=== PATIENT | male | born 1965 | race Caucasian/White ===

== ENCOUNTER 2018-03-06 16:12 | Emergency (ER) | payer MEDICAID ==
[~2018-03-06] VITALS: Ht 172.7 cm; Wt 113.6 kg
[2018-03-06] MEDS ORDERED: MAGNESIUM SULFATE 2 GM, MVI, ADULT NO.1 WITH VIT K 10 ML, THIAMINE HCL 100 MG, FOLIC AC... IV ONE ×5 (17:15)
[2018-03-06] MEDS ORDERED: SODIUM CHLORIDE 0.9% 1,000 ML IV ONE (17:15)
[2018-03-06 18:47] LABS: BASOPHILS % (AUTO) 1.4 % (0.0-2.0); EOSINOPHILS % (AUTO) 4.5 % (1.0-6.0); HEMATOCRIT 24.1 % (41-53); HEMOGLOBIN 8.5 g/dL (13.5-17.5); LYMPHOCYTES # (AUTO) 1.4 K/uL (1.0-4.8); LYMPHOCYTES % (AUTO) 35.9 % (22.0-44.0); MEAN CORPUSCULAR HGB CONC 35.1 G/dL (31.0-37.0); MEAN CORPUSCULAR VOLUME 97 fL (80-100); MONOCYTES # (AUTO) 0.4 K/uL (0.1-1.0); MONOCYTES % (AUTO) 9.8 % (2.0-9.0); NEUTROPHILS # (AUTO) 1.9 K/uL (1.8-7.7); NEUTROPHILS % (AUTO) 48.4 % (40.0-70.0); PLATELET COUNT (AUTO) 123 K/uL (150-450); RED BLOOD CELL COUNT(AUTO) 2.49 MIL/uL (4.50-5.90); RED CELL DISTRIBUTION WIDTH 17.9 % (11.5-14.5)
[2018-03-06 19:01] LABS: ANION GAP 10 mmol/L (8-16); CALCIUM, TOTAL 7.9 mg/dL (8.8-10.5); CARBON DIOXIDE 27 mmol/L (22-29); CHLORIDE 104 mmol/L (98-107); CREATININE 0.82 mg/dL (0.60-1.30); GLOMERULAR FILTR. RATE CALC > 60 mL/min (>60); GLUCOSE,RANDOM 77 mg/dL (70-110); POTASSIUM 4.3 mmol/L (3.5-5.1); SODIUM SERUM 141 mmol/L (136-145); UREA NITROGEN, BLOOD 23 mg/dL (7-18)
[2018-03-06 19:05] LABS: ALANINE AMINOTRANSFERASE 42 U/L (12-78); ALBUMIN 3.5 g/dL (3.4-5.0); ALKALINE PHOSPHATASE 92 U/L (46-116); ASPARTATE AMINOTRANSFERASE 50 U/L (15-37); BILIRUBIN,TOTAL 0.4 mg/dL (0.1-1.0)
[2018-03-06 19:17] LABS: PLATELET MORPHOLOGY COMMENT LARGE PLTS PRESENT
[2018-03-06 19:52] LABS: LIPASE 292 U/L (73-393)
[2018-03-06] MEDS ORDERED: APIX2.5T PO (19:56)
[2018-03-06] MEDS ORDERED: [UNRECOGNIZED DRUG - REMARK] PO (19:57)
[2018-03-06] MEDS ORDERED: UNK BP MED PO (19:57)
[2018-03-06 20:34] LABS: APPEARANCE,URINE CLEAR (CLEAR); BILIRUBIN,URINE NEGATIVE (NEGATIVE); GLUCOSE, URINE (UA) NEGATIVE (NEGATIVE); KETONES,URINE NEGATIVE (NEGATIVE); LEUKOCYTE ESTERASE ,URINE NEGATIVE (NEGATIVE); NITRATE,URINE NEGATIVE (NEGATIVE); OCCULT BLOOD,URINE NEGATIVE (NEGATIVE); PROTEIN,URINE NEGATIVE (NEGATIVE); UROBILINOGEN,URINE 0.2 mg/dL (<=1.0)
[2018-03-06 20:39] LABS: AMPHET/METH SCREEN,URINE NEGATIVE (NEGATIVE); BARBITURATE SCREEN, URINE NEGATIVE (NEGATIVE); BENZODIAZEPINES SCREEN,URINE POSITIVE (NEGATIVE); CANNABINOID SCREEN,URINE NEGATIVE (NEGATIVE); COCAINE SCREEN,URINE NEGATIVE (NEGATIVE); METHADONE SCREEN, URINE NEGATIVE (NEGATIVE); OPIATE SCREEN,URINE NEGATIVE (NEGATIVE); PHENCYCLIDINE SCREEN,URINE NEGATIVE (NEGATIVE)
[2018-03-06] MEDS ORDERED: DiphenhydrAMINE HCL 50 MG/ML VIAL IVP ONE (21:15)
[2018-03-06] MEDS ORDERED: ChlordiazePOXIDE HCL 25 MG CAPSULE PO ONE (21:15)
[2018-03-07] MEDS ORDERED: PHENobarbital 30 MG TABLET PO ONE ×2 (05:30→05:45)
[2018-03-07] MEDS ORDERED: SPIR25 PO (06:46)
[2018-03-07] MEDS ORDERED: LEVO25TA9 PO (06:46)
[2018-03-07] MEDS ORDERED: APIX2.5T PO (06:46)
[2018-03-07] MEDS ORDERED: IRON18TA PO (06:46)
[2018-03-07] MEDS ORDERED: BUME1TAB17 PO (06:46)
[2018-03-07] MEDS ORDERED: SACU1TAB PO (06:46)
[2018-03-07 06:51] VITALS: BP 119/89
== END 2018-03-07 08:26 | disposition left against medical advice (07) ==
LOC: EMS 16:13
DX: S00.93XA Contusion of unspecified part of head, initial encounter (principal); R07.9 Chest pain, unspecified; K70.30 Alcoholic cirrhosis of liver without ascites; D64.9 Anemia, unspecified; D61.818 Other pancytopenia; F10.239 Alcohol dependence with withdrawal, unspecified; I50.9 Heart failure, unspecified; I25.2 Old myocardial infarction; F17.210 Nicotine dependence, cigarettes, uncomplicated; I25.10 Atherosclerotic heart disease of native coronary artery without angina pectoris; J44.9 Chronic obstructive pulmonary disease, unspecified; Z59.0 Homelessness; Z79.01 Long term (current) use of anticoagulants; W19.XXXA Unspecified fall, initial encounter; Y93.89 Activity, other specified; Y92.89 Other specified places as the place of occurrence of the external cause; Y99.8 Other external cause status
CPT/HCPCS: 36415; 71045; 80053; 80307; 81003; 82271; 83690; 84484; 85025; 96365; 96366; 96374; 99285; 99406; G0480; J1200; J3411; J3475; J3490 ×2; J7030

== ENCOUNTER 2019-12-16 19:04 | Emergency (ER) | payer MEDICAID ==
[~2019-12-16] VITALS: Ht 172.7 cm; Wt 95.5 kg
[~2019-12-16 19:04] MED LIST: APIX2.5T PO; BUME1TAB34 PO; IRON18TA PO; LEVO25TA9 PO; SACU1TAB PO; SPIR25 PO; UNK BP MED PO; [UNRECOGNIZED DRUG - REMARK] PO
[2019-12-16] MEDS ORDERED: METO50 PO (19:24)
[2019-12-16] MEDS ORDERED: DILTIAZEM HCL 5 MG/ML 5 ML VIAL IVP ONE (19:45)
[2019-12-16 19:46] LABS: BASOPHILS % (AUTO) 0.7 % (0.0-2.0); EOSINOPHILS % (AUTO) 7.6 % (1.0-6.0); HEMATOCRIT 34.9 % (41-53); HEMOGLOBIN 11.2 g/dL (13.5-17.5); LYMPHOCYTES # (AUTO) 1.4 K/uL (1.0-4.8); LYMPHOCYTES % (AUTO) 22.1 % (22.0-44.0); MEAN CORPUSCULAR HEMOGLOBIN 26.9 pg (26.0-34.0); MEAN CORPUSCULAR HGB CONC 32.2 G/dL (31.0-37.0); MEAN CORPUSCULAR VOLUME 84 fL (80-100); MONOCYTES # (AUTO) 0.4 K/uL (0.1-1.0); MONOCYTES % (AUTO) 6.9 % (2.0-9.0); NEUTROPHILS # (AUTO) 4.1 K/uL (1.8-7.7); NEUTROPHILS % (AUTO) 62.7 % (40.0-70.0); PLATELET COUNT (AUTO) 169 K/uL (150-450); RED BLOOD CELL COUNT(AUTO) 4.18 MIL/uL (4.50-5.90); RED CELL DISTRIBUTION WIDTH 19.5 % (11.5-14.5)
[2019-12-16] MEDS ORDERED: FERR-89 PO (19:48)
[2019-12-16 19:58] LABS: ANION GAP 11 mmol/L (8-16); CALCIUM, TOTAL 8.8 mg/dL (8.8-10.5); CARBON DIOXIDE 24 mmol/L (22-29); CHLORIDE 101 mmol/L (98-107); CREATININE 0.79 mg/dL (0.60-1.30); GLOMERULAR FILTR. RATE CALC > 60 mL/min (>60); GLUCOSE,RANDOM 101 mg/dL (70-110); POTASSIUM 4.2 mmol/L (3.5-5.1); SODIUM SERUM 136 mmol/L (136-145); UREA NITROGEN, BLOOD 11 mg/dL (7-18)
[2019-12-16] MEDS ORDERED: SODIUM CHLORIDE 0.9% 1,000 ML IV ONE (20:00)
[2019-12-16 20:03] LABS: ALANINE AMINOTRANSFERASE 52 U/L (12-78); ALBUMIN 3.5 g/dL (3.4-5.0); ALKALINE PHOSPHATASE 132 U/L (46-116); ASPARTATE AMINOTRANSFERASE 43 U/L (15-37); BILIRUBIN,TOTAL 0.5 mg/dL (0.1-1.0); TOTAL PROTEIN, SERUM 7.9 g/dL (6.4-8.2)
[2019-12-16 20:11] LABS: B-TYPE NATRIURETIC PEPTIDE 238 pg/mL (0-100)
[2019-12-16] MEDS ORDERED: DILTIAZEM HCL 30 MG TABLET PO ONE (22:15)
[2019-12-17] MEDS ORDERED: APIXABAN 2.5 MG TABLET PO ONE (04:15)
[2019-12-17] MEDS ORDERED: LEVOTHYROXINE SODIUM 25 MCG TABLET PO ONE (04:45)
[2019-12-17] MEDS ORDERED: METOPROLOL TARTRATE 50 MG TABLET PO ONE (04:45)
[2019-12-17] MEDS ORDERED: BUMETANIDE 1 MG TABLET PO ONE (04:45)
[2019-12-17 05:20] VITALS: BP 118/79
== END 2019-12-17 06:15 | disposition home or self-care (01) ==
LOC: EMS 19:04
DX: I48.91 Unspecified atrial fibrillation (principal); R00.0 Tachycardia, unspecified; F10.129 Alcohol abuse with intoxication, unspecified; F41.9 Anxiety disorder, unspecified; I50.9 Heart failure, unspecified; J44.9 Chronic obstructive pulmonary disease, unspecified; I25.2 Old myocardial infarction; F17.210 Nicotine dependence, cigarettes, uncomplicated; Y90.8 Blood alcohol level of 240 mg/100 ml or more
CPT/HCPCS: 36415; 71045; 80053; 83880; 84484; 85025; 93005; 96374; 99291; G0480; J3490; J7030

== ENCOUNTER 2020-03-12 20:44 | Emergency (ER) | payer MEDICAID ==
[~2020-03-12] VITALS: Ht 172.7 cm; Wt 115.9 kg
[~2020-03-12 20:44] MED LIST changes: +FERR-89 PO; -IRON18TA PO; +METO50 PO; -SPIR25 PO; -UNK BP MED PO; -[UNRECOGNIZED DRUG - REMARK] PO
[2020-03-12 20:59] VITALS: BP 116/65
[2020-03-12 23:41] LABS: BASOPHILS % (AUTO) 1.4 % (0.0-2.0); HEMATOCRIT 28.8 % (41-53); HEMOGLOBIN 9.2 g/dL (13.5-17.5); LYMPHOCYTES % (AUTO) 24.8 % (22.0-44.0); MEAN CORPUSCULAR HEMOGLOBIN 27.1 pg (26.0-34.0); MEAN CORPUSCULAR VOLUME 85 fL (80-100); MONOCYTES # (AUTO) 0.3 K/uL (0.1-1.0); MONOCYTES % (AUTO) 7.4 % (2.0-9.0); NEUTROPHILS # (AUTO) 2.6 K/uL (1.8-7.7); NEUTROPHILS % (AUTO) 62.4 % (40.0-70.0); PLATELET COUNT (AUTO) 186 K/uL (150-450); RED BLOOD CELL COUNT(AUTO) 3.39 MIL/uL (4.50-5.90); RED CELL DISTRIBUTION WIDTH 18.9 % (11.5-14.5)
[2020-03-12 23:58] LABS: INR 1.2 (0.9-1.1)
[2020-03-13 00:08] LABS: CALCIUM, TOTAL 8.6 mg/dL (8.8-10.5); CREATININE 1.88 mg/dL (0.60-1.30); POTASSIUM 4.3 mmol/L (3.5-5.1)
[2020-03-13 00:14] LABS: ALBUMIN 3.7 g/dL (3.4-5.0); BILIRUBIN,TOTAL 0.8 mg/dL (0.1-1.0); TOTAL PROTEIN, SERUM 8.3 g/dL (6.4-8.2)
== END 2020-03-13 02:37 | disposition home or self-care (01) ==
LOC: EMS 20:44
DX: M54.6 Pain in thoracic spine (principal); F10.10 Alcohol abuse, uncomplicated; M54.2 Cervicalgia; R51 Headache; I48.91 Unspecified atrial fibrillation; F41.9 Anxiety disorder, unspecified; I50.9 Heart failure, unspecified; J44.9 Chronic obstructive pulmonary disease, unspecified; I25.2 Old myocardial infarction; F17.210 Nicotine dependence, cigarettes, uncomplicated; Z59.0 Homelessness
CPT/HCPCS: 70450; 71250; 72125

== ENCOUNTER 2022-05-19 13:02 | Inpatient (IN) | payer MEDICAID ==
[~2022-05-19] VITALS: Ht 172.7 cm; Wt 110.8 kg
[~2022-05-19 13:02] MED LIST changes: -APIX2.5T PO; +APIX5TAB PO; +ATOR20TA65 PO; -FERR-89 PO; +IPRA4AER IH; -LEVO25TA9 PO; +LEVO50TA11 PO; +LISI5TAB21 PO; -METO50 PO; +PANT-31 PO; -SACU1TAB PO; +THIA100T92 PO
[2022-05-19 13:50] LABS: APPEARANCE,URINE CLEAR (CLEAR); BILIRUBIN,URINE NEGATIVE (NEGATIVE); GLUCOSE, URINE (UA) NEGATIVE (NEGATIVE); KETONES,URINE NEGATIVE (NEGATIVE); LEUKOCYTE ESTERASE ,URINE NEGATIVE (NEGATIVE); NITRATE,URINE NEGATIVE (NEGATIVE); OCCULT BLOOD,URINE NEGATIVE (NEGATIVE); PH,URINE 6.5 (5.0-8.0); PROTEIN,URINE NEGATIVE (NEGATIVE); SPECIFIC GRAVITIY, URINE 1.005 (1.003-1.030); UROBILINOGEN,URINE <=1.0 mg/dL (<=1.0)
[2022-05-19 13:57] LABS: AMPHET/METH SCREEN,URINE NEGATIVE (NEGATIVE); BARBITURATE SCREEN, URINE POSITIVE (NEGATIVE); BENZODIAZEPINES SCREEN,URINE NEGATIVE (NEGATIVE); CANNABINOID SCREEN,URINE NEGATIVE (NEGATIVE); COCAINE SCREEN,URINE NEGATIVE (NEGATIVE); METHADONE SCREEN, URINE NEGATIVE (NEGATIVE); OPIATE SCREEN,URINE NEGATIVE (NEGATIVE); PHENCYCLIDINE SCREEN,URINE NEGATIVE (NEGATIVE)
[2022-05-19 14:00] LABS: BASOPHILS % (AUTO) 1.2 % (0.0-2.0); EOSINOPHILS % (AUTO) 6.5 % (1.0-6.0); HEMATOCRIT 27.7 % (41-53); HEMOGLOBIN 9.3 g/dL (13.5-17.5); LYMPHOCYTES # (AUTO) 0.5 K/uL (1.0-4.8); LYMPHOCYTES % (AUTO) 11.6 % (22.0-44.0); MEAN CORPUSCULAR HEMOGLOBIN 31.2 pg (26.0-34.0); MEAN CORPUSCULAR HGB CONC 33.7 G/dL (31.0-37.0); MEAN CORPUSCULAR VOLUME 93 fL (80-100); MONOCYTES # (AUTO) 0.6 K/uL (0.1-1.0); MONOCYTES % (AUTO) 13.9 % (2.0-9.0); NEUTROPHILS % (AUTO) 66.8 % (40.0-70.0); PLATELET COUNT (AUTO) 130 K/uL (150-450); RED BLOOD CELL COUNT(AUTO) 2.99 MIL/uL (4.50-5.90); RED CELL DISTRIBUTION WIDTH 18.2 % (11.5-14.5)
[2022-05-19] MEDS ORDERED: BUMETANIDE 0.25 MG/ML 4 ML VIAL IVP SCH (14:00)
[2022-05-19 14:01] LABS: COVID AG,FIA SOURCE NASOPHARYNGEAL
[2022-05-19 14:03] LABS: BACTERIA,URINE None Seen /HPF (None Seen); RBC,URINE 0-2 /HPF (0-2); WBC,URINE 0-2 /HPF (0-5)
[2022-05-19 14:04] LABS: SQUAMOUS EPITHELIAL CELL,UR Few /LPF (None Seen)
[2022-05-19 14:11] LABS: ALANINE AMINOTRANSFERASE 20 U/L (12-78); ALBUMIN 3.4 g/dL (3.4-5.0); ALKALINE PHOSPHATASE 301 U/L (46-116); ANION GAP 8 mmol/L (8-16); ASPARTATE AMINOTRANSFERASE 24 U/L (15-37); BILIRUBIN,TOTAL 0.9 mg/dL (0.1-1.0); CALCIUM, TOTAL 8.3 mg/dL (8.8-10.5); CARBON DIOXIDE 26 mmol/L (22-29); CHLORIDE 86 mmol/L (98-107); GLOMERULAR FILTR. RATE CALC > 60 mL/min (>60); GLUCOSE,RANDOM 96 mg/dL (70-110); POTASSIUM 4.4 mmol/L (3.5-5.1); TOTAL PROTEIN, SERUM 7.6 g/dL (6.4-8.2); UREA NITROGEN, BLOOD 26 mg/dL (7-18)
[2022-05-19 14:12] LABS: SODIUM SERUM 120 mmol/L (136-145)
[2022-05-19 14:13] LABS: LACTIC ACID 0.9 mmol/L (0.4-2.0)
[2022-05-19] MEDS ORDERED: FUROSEMIDE 40 MG/4 ML VIAL IVP ONE (14:15)
[2022-05-19 14:16] LABS: B-TYPE NATRIURETIC PEPTIDE 924 pg/mL (0-100)
[2022-05-19] MEDS: METOPROLOL SUCCINATE 25 MG ER TABLET PO SCH (14:45)
[2022-05-19] MEDS ORDERED: HEPARIN SODIUM,PORCINE 5,000 UNITS/ML VIAL SQ SCH (16:00)
[2022-05-19 16:43] VITALS: BP 113/68
[2022-05-19] MEDS: SPIRONOLACTONE 25 MG TABLET PO SCH (18:27)
[2022-05-19 19:35] VITALS: BP 107/63
[2022-05-19 20:10] VITALS: BP 99/64
[2022-05-19] MEDS: DOCUSATE SODIUM 100 MG CAPSULE PO SCH (20:16)
[2022-05-19] MEDS: APIXABAN 5 MG TABLET PO SCH (20:16)
[2022-05-19] MEDS: LORazepam 2 MG TABLET PO PRN ×2 (20:16→23:54)
[2022-05-19] MEDS: MULTIVITAMINS WITH MINERALS, THERAPEUTIC TABLET PO SCH (20:16)
[2022-05-19] MEDS: BUMETANIDE 0.25 MG/ML 4 ML VIAL IVP SCH (20:17)
[2022-05-19] MEDS: ONDANSETRON HCL 4 MG/2 ML VIAL IVP PRN (20:33)
[2022-05-19 21:25] VITALS: BP 104/73
[2022-05-19] MEDS: ACETAMINOPHEN 325 MG TABLET PO PRN (22:42)
[2022-05-19 23:34] VITALS: BP 124/71
[2022-05-20] MEDS ORDERED: KETOROLAC TROMETHAMINE 15 MG/ML VIAL IVP ONE (00:30)
[2022-05-20 04:57] VITALS: BP 109/62
[2022-05-20] MEDS ORDERED: LORazepam 2 MG TABLET PO PRN (07:00)
[2022-05-20 07:15] LABS: BASOPHILS % (AUTO) 1.2 % (0.0-2.0); EOSINOPHILS % (AUTO) 7.2 % (1.0-6.0); HEMATOCRIT 27.2 % (41-53); HEMOGLOBIN 9.1 g/dL (13.5-17.5); LYMPHOCYTES # (AUTO) 0.4 K/uL (1.0-4.8); LYMPHOCYTES % (AUTO) 10.9 % (22.0-44.0); MEAN CORPUSCULAR HGB CONC 33.4 G/dL (31.0-37.0); MEAN CORPUSCULAR VOLUME 93 fL (80-100); MONOCYTES # (AUTO) 0.6 K/uL (0.1-1.0); MONOCYTES % (AUTO) 16.6 % (2.0-9.0); NEUTROPHILS # (AUTO) 2.2 K/uL (1.8-7.7); NEUTROPHILS % (AUTO) 64.1 % (40.0-70.0); PLATELET COUNT (AUTO) 84 K/uL (150-450); RED BLOOD CELL COUNT(AUTO) 2.92 MIL/uL (4.50-5.90); RED CELL DISTRIBUTION WIDTH 17.6 % (11.5-14.5)
[2022-05-20 07:27] LABS: ANION GAP 9 mmol/L (8-16); CALCIUM, TOTAL 8.4 mg/dL (8.8-10.5); CARBON DIOXIDE 28 mmol/L (22-29); CHLORIDE 90 mmol/L (98-107); CREATININE 1.19 mg/dL (0.60-1.30); GLUCOSE,RANDOM 77 mg/dL (70-110); POTASSIUM 4.1 mmol/L (3.5-5.1); SODIUM SERUM 127 mmol/L (136-145); UREA NITROGEN, BLOOD 27 mg/dL (7-18)
[2022-05-20 07:34] LABS: GLOMERULAR FILTR. RATE CALC > 60 mL/min (>60)
[2022-05-20 07:37] VITALS: BP 121/66
[2022-05-20 08:39] LABS: PLATELET MORPHOLOGY COMMENT GIANT PLTS PRESENT
[2022-05-20] MEDS: METOPROLOL SUCCINATE 25 MG ER TABLET PO SCH (08:52)
[2022-05-20] MEDS: APIXABAN 5 MG TABLET PO SCH ×2 (08:53→20:10)
[2022-05-20] MEDS: FAMOTIDINE 20 MG TABLET PO SCH (08:53)
[2022-05-20] MEDS: DOCUSATE SODIUM 100 MG CAPSULE PO SCH ×2 (08:53→20:10)
[2022-05-20] MEDS: LISINOPRIL 5 MG TABLET PO SCH (08:53)
[2022-05-20] MEDS: MULTIVITAMINS WITH MINERALS, THERAPEUTIC TABLET PO SCH ×2 (08:53→20:10)
[2022-05-20] MEDS: BUMETANIDE 0.25 MG/ML 4 ML VIAL IVP SCH ×2 (08:55→20:10)
[2022-05-20] MEDS: SPIRONOLACTONE 25 MG TABLET PO SCH (08:55)
[2022-05-20] MEDS ORDERED: LORazepam 2 MG TABLET PO SCH (09:00)
[2022-05-20] MEDS: MULTIVITAMINS, THERAPEUTIC TABLET PO SCH (09:00)
[2022-05-20 11:28] VITALS: BP 124/58
[2022-05-20] MEDS: LORazepam 2 MG/ML VIAL IVP PRN ×2 (13:28→20:11)
[2022-05-20 15:20] VITALS: BP 114/49
[2022-05-20 19:31] VITALS: BP 103/65
[2022-05-20] MEDS: ACETAMINOPHEN 325 MG TABLET PO PRN (20:10)
[2022-05-20 23:26] VITALS: BP 108/54
[2022-05-21 03:41] VITALS: BP 107/49
[2022-05-21] MEDS: LORazepam 2 MG/ML VIAL IVP PRN ×2 (04:09→12:10)
[2022-05-21] MEDS ORDERED: LEVOTHYROXINE SODIUM 50 MCG TABLET PO SCH (06:30)
[2022-05-21 07:46] VITALS: BP 108/55
[2022-05-21] MEDS: MULTIVITAMINS, THERAPEUTIC TABLET PO SCH (09:00)
[2022-05-21] MEDS: BUMETANIDE 0.25 MG/ML 4 ML VIAL IVP SCH (09:10)
[2022-05-21] MEDS: APIXABAN 5 MG TABLET PO SCH (09:19)
[2022-05-21] MEDS: DOCUSATE SODIUM 100 MG CAPSULE PO SCH (09:19)
[2022-05-21] MEDS: MULTIVITAMINS WITH MINERALS, THERAPEUTIC TABLET PO SCH (09:20)
[2022-05-21] MEDS: FAMOTIDINE 20 MG TABLET PO SCH (09:20)
[2022-05-21] MEDS: METOPROLOL SUCCINATE 25 MG ER TABLET PO SCH (09:20)
[2022-05-21] MEDS: SPIRONOLACTONE 25 MG TABLET PO SCH (09:22)
[2022-05-21] MEDS: LISINOPRIL 5 MG TABLET PO SCH (09:32)
[2022-05-21 10:45] LABS: BASOPHILS % (AUTO) 0.6 % (0.0-2.0); EOSINOPHILS % (AUTO) 4.7 % (1.0-6.0); HEMATOCRIT 25.9 % (41-53); HEMOGLOBIN 8.6 g/dL (13.5-17.5); LYMPHOCYTES # (AUTO) 0.3 K/uL (1.0-4.8); LYMPHOCYTES % (AUTO) 6.4 % (22.0-44.0); MEAN CORPUSCULAR HEMOGLOBIN 31.1 pg (26.0-34.0); MEAN CORPUSCULAR HGB CONC 33.3 G/dL (31.0-37.0); MEAN CORPUSCULAR VOLUME 93 fL (80-100); MONOCYTES # (AUTO) 0.5 K/uL (0.1-1.0); MONOCYTES % (AUTO) 11.1 % (2.0-9.0); NEUTROPHILS # (AUTO) 3.1 K/uL (1.8-7.7); NEUTROPHILS % (AUTO) 77.2 % (40.0-70.0); PLATELET COUNT (AUTO) 75 K/uL (150-450); RED BLOOD CELL COUNT(AUTO) 2.78 MIL/uL (4.50-5.90); RED CELL DISTRIBUTION WIDTH 18.1 % (11.5-14.5)
[2022-05-21 11:04] LABS: ALANINE AMINOTRANSFERASE 18 U/L (12-78); ALBUMIN 3.3 g/dL (3.4-5.0); ALKALINE PHOSPHATASE 268 U/L (46-116); ANION GAP 4 mmol/L (8-16); ASPARTATE AMINOTRANSFERASE 23 U/L (15-37); CALCIUM, TOTAL 7.9 mg/dL (8.8-10.5); CARBON DIOXIDE 31 mmol/L (22-29); CHLORIDE 92 mmol/L (98-107); CREATININE 1.19 mg/dL (0.60-1.30); GLUCOSE,RANDOM 125 mg/dL (70-110); POTASSIUM 3.9 mmol/L (3.5-5.1); SODIUM SERUM 127 mmol/L (136-145); TOTAL PROTEIN, SERUM 6.8 g/dL (6.4-8.2); UREA NITROGEN, BLOOD 31 mg/dL (7-18)
[2022-05-21 11:12] VITALS: BP 111/78
[2022-05-21 11:16] LABS: GLOMERULAR FILTR. RATE CALC > 60 mL/min (>60)
[2022-05-21 11:19] LABS: PLATELET MORPHOLOGY COMMENT GIANT PLTS PRESENT
[2022-05-21] MEDS: ONDANSETRON HCL 4 MG/2 ML VIAL IVP PRN (14:07)
[2022-05-21 15:21] VITALS: BP 108/73
[2022-05-22] MEDS ORDERED: LORazepam 1 MG TABLET PO PRN (07:00)
[2022-05-22] MEDS ORDERED: LORazepam 1 MG TABLET PO SCH (09:00)
[2022-05-23] MEDS ORDERED: LORazepam 1 MG TABLET PO PRN (07:00)
== END 2022-05-21 15:31 | disposition left against medical advice (07) | DRG 194 ==
LOC: EMS 13:05 → 5S 15:15
PROVIDERS: ADMIT Internal Medicine; ATTEND Internal Medicine
DX: I11.0 Hypertensive heart disease with heart failure (principal); D61.818 Other pancytopenia; D68.69 Other thrombophilia; E87.1 Hypo-osmolality and hyponatremia; I42.8 Other cardiomyopathies; K74.60 Unspecified cirrhosis of liver; Z53.29 Procedure and treatment not carried out because of patient's decision for other reasons; I50.23 Acute on chronic systolic (congestive) heart failure; J44.9 Chronic obstructive pulmonary disease, unspecified; Z20.822 Contact with and (suspected) exposure to COVID-19; B19.20 Unspecified viral hepatitis C without hepatic coma; I48.0 Paroxysmal atrial fibrillation; F41.9 Anxiety disorder, unspecified; F17.210 Nicotine dependence, cigarettes, uncomplicated; I07.1 Rheumatic tricuspid insufficiency; E66.9 Obesity, unspecified; E78.00 Pure hypercholesterolemia, unspecified; F10.229 Alcohol dependence with intoxication, unspecified; I25.10 Atherosclerotic heart disease of native coronary artery without angina pectoris; Z79.01 Long term (current) use of anticoagulants; Z82.49 Family history of ischemic heart disease and other diseases of the circulatory system; Z95.810 Presence of automatic (implantable) cardiac defibrillator; Z59.00 Homelessness unspecified; Z88.0 Allergy status to penicillin; Z88.1 Allergy status to other antibiotic agents; I25.2 Old myocardial infarction; Z68.37 Body mass index [BMI] 37.0-37.9, adult; Z79.899 Other long term (current) drug therapy
CPT/HCPCS: 71045; 80048; 80053; 81001; 83605; 83690; 83880; 84443; 84484; 85025; 87040; 87081; 93005; 93306; 93970; 99291; G0480; J1885; J1940; J2060; J2405; J3490; 36415-L1; 36415-TC